=== PATIENT | male | born 1945 | race Caucasian/White ===

== ENCOUNTER 2017-05-19 11:51 | Inpatient (IN) | payer OTHER, MEDICARE ==
[2017-05-19 12:14] LABS: Hematocrit 43.5 % (42.0-52.0); Hemoglobin 14.5 gm/dL (13.5-18.0); Mean Cell Volume 84.8 fl (78-100); Mean Corpuscular Hemoglobin 28.3 pg (27-31); Mean Corpuscular Hgb Conc 33.3 g/dl (32-36); Mean Platelet Volume 10.7 fl (6.0-9.5); Neutrophil # 4.6 K/mm3 (1.3-6.0); Neutrophil % 69.4 % (42-75.0); Platelet Count 137 K/mm3 (150-450); Red Blood Count 5.13 M/mm3 (4.7-6.0); Red Cell Distribution Width 15.3 % (11.5-14.0); White Blood Count 6.7 K/mm3 (4.0-10.5)
[2017-05-19 12:24] LABS: Prothrombin Time (Patient) 24.6 Seconds (9.0-11.0)
[2017-05-19 12:25] LABS: INR 2.44 INR (0.90-1.10)
[2017-05-19 12:34] LABS: Albumin * 3.2 gm/dl (3.4-5.0); Anion Gap 12.9 mmol/L (6.8-13.8); BUN/Creatinine Ratio 17.9 (9.0-21.6); Bilirubin, Total 0.4 mg/dL (0.0-1.1); Ca. Corrected For Albumin 9.7 mg/dL (8.4-10.2); Calcium * 9.4 mg/dL (7.9-10.9); Carbon Dioxide 28.7 mmol/L (24-32.6); Potassium 3.6 mmol/L (3.4-4.6)
[2017-05-19 12:35] LABS: Troponin I 0.083 ng/ml (0.00-0.10)
[2017-05-19] MEDS ORDERED: ALBUTEROL SULFATE/IPRATROPIUM 3 ML NEBU IH ONE ×2 (12:42→12:45)
[2017-05-19] MEDS ORDERED: NORMAL SALINE 1,000 ML IV PRN (13:24)
[2017-05-19] MEDS ORDERED: ACETAMINOPHEN 500 MG TABLET PO ONE (13:28)
--- NOTE | 2017-05-19 14:21 | ERNOTE ---
Trauma/Assault HPI - Narrative Date of Service: 05/19/17 - General Stated Complaint: FALL FACE INJURY Time Seen by Provider: 05/19/17 11:53 Source: patient, family Exam Limitations: no limitations - Immun/Allergies/Home Medications Immunizations: IMMUNIZATION HX History of Influenza Vaccine Yes Allergies/Adverse Reactions: Allergies No Known Allergies Allergy (Unverified 05/19/17 12:03) Home Medications: HOME MEDICATIONS Allopurinol [Zyloprim] 300 mg PO BID 05/19/17 [Last Taken Unknown] Amitriptyline HCl [Elavil] 50 mg PO HS 05/19/17 [Last Taken Unknown] Betamethasone Valerate [Betamethasone Valerate Ointment] 1 appl TP BID 05/19/17 [Last Taken Unknown] Cetirizine HCl [Zyrtec] 10 mg PO DAILY 05/19/17 [Last Taken Unknown] Cholecalciferol (Vitamin D3) [Vitamin D] 2,000 unit PO DAILY 05/19/17 [Last Taken Unknown] Colchicine 0.6 mg PO DAILY 05/19/17 [Last Taken Unknown] Fluticasone Propionate [Flovent Diskus] 50 mcg IH DAILY 05/19/17 [Last Taken Unknown] Furosemide [Lasix] 80 mg PO BID 05/19/17 [Last Taken Unknown] Insulin Aspart [Novolog] 5 units SC TIDWM 05/19/17 [Last Taken Unknown] Insulin Glargine,Hum.rec.anlog [Lantus] 40 unit SQ BID 05/19/17 [Last Taken Unknown] Lisinopril [Zestril] 10 mg PO BID 05/19/17 [Last Taken Unknown] Metoprolol Succinate 200 mg PO DAILY 05/19/17 [Last Taken Unknown] Multivitamin [Multivitamins] 1 each PO DAILY 05/19/17 [Last Taken Unknown] Potassium Chloride [Klor-Con M20] 20 meq PO BID 05/19/17 [Last Taken Unknown] SUMAtriptan SUCCINATE [Imitrex] 100 mg PO Q2H PRN 05/19/17 [Last Taken Unknown] Tamsulosin HCl [Flomax] 0.4 mg PO DAILY@1800 05/19/17 [Last Taken Unknown] Terbinafine HCl [Terbinafine] 30 gm TP BID 05/19/17 [Last Taken Unknown] Warfarin Sodium [Coumadin] 5 mg PO DAILY 05/19/17 [Last Taken Unknown] guaiFENesin [Guaifenesin] 400 mg PO TID 05/19/17 [Last Taken Unknown] metFORMIN HCL [Metformin HCl] 1,000 mg PO BID 05/19/17 [Last Taken Unknown] tiZANidine HCL [Tizanidine HCl] 4 mg PO BID 05/19/17 [Last Taken Unknown] - History of Present Illness Narrative: Patient presents with a fall and head/facial injury. He Has been sick since Thursday with cough and increasing weakness. He was seen last night in the [facility] ED and diagnosed with Influenza B. This am he fell in the bathroom and hit his face and head. No CP or SOB. No LOC. No neck pain. Pain left head. No acute focal weakness. Denies extremity injury. Location Occurred: Reports: home Pain Location: Reports: head Method of Injury: Reports: direct blow, fall Severity: moderate Modifying Factors - (Improves): Reports: other - nothing Modifying Factors - (Worsens): Reports: other - nothing Loss of Consciousness: Reports: no loss of consciousness Associated Symptoms - Trauma: Reports: headache. Denies: seizures, slurred speech Review of Systems - Review of Systems Constitutional: Present: fever EYE: Present: see HPI ENT: Absent: throat swelling Respiratory: Present: shortness of breath, cough Cardiology: Absent: chest pain Gastrointestinal/Abdominal: Absent: abdominal pain Genitourinary: Absent: dysuria Musculoskeletal: Absent: joint swelling Skin: Absent: rash Neurological: Present: See HPI All Other Systems: All systems neg except as marked - Patient's Past Medical History Patient History - Medical: Diabetes Type 2 Insulin Dependent, Migraines Patient History - Cardiac/Respiratory: Deep Vein Thrombosis, Hypertension, Hyperlipidemia Patient History - Cancer: No Hx of Cancer Patient History - Surgical Procedures: Total Hip Replacement Patient History - Other: None - Social History Living Situations: home Alcohol Use: none Drug Use: none - Immunizations History of Influenza Vaccine: Yes Physical Exam - Physical Exam General Appearance: Present: alert, other - frequent cough, tachypnea. Generalized weakness Head Exam: Present: other - bruising left forehead/temporal area.. Absent: Martini's Sign Eye Exam: Normal inspection: bilateral, PERRL: bilateral, EOMI: bilateral - Difficult exam but no clear restrictions in EOM., Other: left - Subconjuntival hemorrhage left, no hyphema Ears, Nose, Throat: Present: other - left facial tendenress. Absent: normal pharynx, pharyngeal swelling Neck: Present: normal inspection, other - after CT, no localizing point tendenress, no tendenress to palpation whatsoever. No sugestion of fracture clinically ot ligamentous injury. CT reviewed, no clinical evidence of fracture Respiratory: Present: other - harsh cough, faint wheeze, tachypnea. Cardiovascular/Chest: Present: regular rate, rhythm, normal peripheral pulses Gastrointestinal/Abdominal: Present: normal bowel sounds, nontender, soft Back Exam: Present: no vertebral tenderness Extremity Exam: Present: non-tender Neurological Exam: Present: alert, no motor/sensory deficits, other - generalized weakness, no acute unilteral focal motor or sensory deifcits Skin Exam: Present: normal color, warm/dry ED Progress - Results and Orders Patient's Lab Results:: I have reviewed the patient's lab results. - Vital Signs Patient's Vital Signs:: I have reviewed the patient's vital signs. Vital Signs: Vital Signs 05/19/17 05/19/17 05/19/17 11:52 12:03 12:33 Temperature 37.6 C H 37.6 C H Pulse Rate 92 91 91 Respiratory 16 16 24 H Rate Blood Pressure 188/108 188/108 173/108 O2 Sat by Pulse 100 100 97 Oximetry 05/19/17 05/19/17 12:45 13:03 Temperature Pulse Rate 98 100 Respiratory 28 H 26 H Rate Blood Pressure 165/76 O2 Sat by Pulse 95 89 L Oximetry - EKG EKG: NSR EKG read: Interp. by me EKG Comments: NSR rate 97. PVC. Non-specific changes, no clear STEMI - X-Ray X-Ray #1 X-Ray: chest Interpretation: Interp. by me X-ray Comments: I reviewed radioilogy report - CT/Ultrasound CT/Ultrasound Narrative: I reviewed official radiology reports for head CT, C-spine CT and facial bone CT. - Progress/Reassessment Chief Complaint: Fall Progress Note-Subjective: 05/19/17 14:18 Influenza B pos last night, generalized weakness with fall and injury. Hypoxia here, sats 87% RA. Needs obs. 05/19/17 15:48 [facility], needs admit here. D/W Dr Camacho, will admit. Departure Clinical Impression: Fall, Influenza B, Head injury, Musculoskeletal pain, Hypoxia - Departure Disposition: Still a patient Condition: Stable Critical Care Time - Critical Care Critical Time Spent:: No
--- NOTE | 2017-05-19 17:07 | HP ---
Chief Complaint - Chief Complaint Date of Service: 05/19/17 Time of Service: 16:48 Chief Complaint: fall History of Present Illness: Willy Rodriguez, is a 71-year-old white male, who usually goes to the [facility], with previous medical history of hypertension, diabetes mellitus type 2, hyperlipidemia, history of DVT and pulmonary embolism in the past, who was admitted on 05/19/2017 because of a fall. Two days [employer], the patient started having coughing associated with URI symptoms. One day [employer], he was seen in the emergency room of [facility] and was diagnosed with influenza B . He was sent home on no medicine because she was told that it was too late to start the Tamiflu. Today while walking to his bathroom he fell down and hit his left side of his head and then he developed a big subconjunctival hemorrhage of his left eye. He denies any vision loss. He was then brought to our emergency room where he had the CT scan of his neck, face and head which showed no fractures. He was then found also to be hypoxemic and needing oxygen to bring up his saturation to the 90s. He was then admitted for further treatment. - Patient's Past Medical History Patient History - Medical: Diabetes Type 2 Insulin Dependent, Migraines Patient History - Cardiac/Respiratory: Deep Vein Thrombosis, Hypertension, Hyperlipidemia Patient History - Cancer: No Hx of Cancer Patient History - Surgical Procedures: Total Hip Replacement Patient History - Other: None - Family History Mother Family History - Medical: , Depression Family History - Cardiac/Respiratory: History Unknown Family History - Cancer: History Unknown Father Family History - Medical: , History Unknown Family History - Cardiac/Respiratory: History Unknown Family History - Cancer: No pertinent family hx Sister Family History - Medical: History Unknown Family History - Cardiac/Respiratory: History Unknown Family History - Cancer: History Unknown - Social History Living Situations: home Alcohol Use: none Drug Use: none - Immunizations History of Influenza Vaccine: Yes Review Of Systems (GEN) - Review of Systems Generalized/Overall Review: Present: Weakness EENTM: Absent: Blurred Vision Respiratory: Present: Cough, Shortness of Breath, Wheezing Cardiac: Present: Edema. Absent: Chest Pain, Palpitations Abdominal: Absent: Nausea, Vomiting Genitourinary: Absent: Urgency, Frequency Musculoskeletal: Present: Joint Pain Neurological: Absent: Weakness Immunizations: IMMUNIZATION HX History of Influenza Vaccine Yes Allergies/Adverse Reactions: Allergies Allergy/AdvReac Type Severity Reaction Status Date / Time No Known Allergies Allergy Verified 05/19/17 17:36 Home Medications: HOME MEDICATIONS Allopurinol [Zyloprim] 300 mg PO BID 05/19/17 [Last Taken Unknown] Amitriptyline HCl [Elavil] 50 mg PO HS 05/19/17 [Last Taken Unknown] Atorvastatin Calcium [Lipitor] 40 mg PO HS 05/19/17 [Last Taken Unknown] Betamethasone Valerate [Betamethasone Valerate Ointment] 1 appl TP BID 05/19/17 [Last Taken Unknown] Cetirizine HCl [Zyrtec] 10 mg PO DAILY 05/19/17 [Last Taken Unknown] Cholecalciferol (Vitamin D3) [Vitamin D] 2,000 unit PO DAILY 05/19/17 [Last Taken Unknown] Colchicine 0.6 mg PO DAILY 05/19/17 [Last Taken Unknown] Ferrous Sulfate [Iron] 324 mg PO DAILY 05/19/17 [Last Taken Unknown] Fluticasone Propionate [Flovent Diskus] 50 mcg IH DAILY 05/19/17 [Last Taken Unknown] Furosemide [Lasix] 80 mg PO BID 05/19/17 [Last Taken Unknown] Insulin Aspart [Novolog] 21 units SC 1700 05/19/17 [Last Taken Unknown] Insulin Aspart [Novolog] 23 units SC 1200 05/19/17 [Last Taken Unknown] Insulin Aspart [Novolog] 30 units SC 0700 05/19/17 [Last Taken Unknown] Insulin Glargine,Hum.rec.anlog [Lantus] 50 unit SQ BID 05/19/17 [Last Taken Unknown] Lisinopril [Zestril] 10 mg PO BID 05/19/17 [Last Taken Unknown] Metoprolol Succinate 200 mg PO DAILY 05/19/17 [Last Taken Unknown] Multivitamin [Multivitamins] 1 each PO DAILY 05/19/17 [Last Taken Unknown] Potassium Chloride [Klor-Con M20] 20 meq PO BID 05/19/17 [Last Taken Unknown] SUMAtriptan SUCCINATE [Imitrex] 100 mg PO Q2H PRN 05/19/17 [Last Taken Unknown] Tamsulosin HCl [Flomax] 0.4 mg PO DAILY@1800 05/19/17 [Last Taken Unknown] Terbinafine HCl [Terbinafine] 30 gm TP BID 05/19/17 [Last Taken Unknown] Warfarin Sodium [Coumadin] 5 mg PO DAILY 05/19/17 [Last Taken Unknown] guaiFENesin [Guaifenesin] 400 mg PO TID 05/19/17 [Last Taken Unknown] metFORMIN HCL [Metformin HCl] 1,000 mg PO BID 05/19/17 [Last Taken Unknown] tiZANidine HCL [Tizanidine HCl] 4 mg PO BID 05/19/17 [Last Taken Unknown] Exam - Exam Vital Signs: Vital Signs - Last Taken Temp 36.5 C 05/19/17 16:00 Pulse 89 05/19/17 16:00 Resp 21 H 05/19/17 16:00 BP 129/74 05/19/17 16:00 Pulse Ox 94 05/19/17 16:00 Constitutional: Present: Alert, Oriented x3, Cooperative, Mild distress, Morbidly obese ENT Exam: Present: hearing grossly normal Eye Exam: left eye: other - subconjunctival hemorhage Neck: Present: non-tender Respiratory: Present: decreased breath sounds, crackles, wheezing Cardiovascular/Chest: Present: regular rate, rhythm, no JVD, no murmur Abdomen: Present: Normal bowel sounds, soft, nontender, nondistended Extremity: Present: no calf tenderness, lower extremity edema Diagnostic Studies: Laboratory Results WBC 6.7 K/mm3 (4.0-10.5) 05/19/17 12:10 RBC 5.13 M/mm3 (4.7-6.0) 05/19/17 12:10 Hgb 14.5 gm/dL (13.5-18.0) 05/19/17 12:10 Hct 43.5 % (42.0-52.0) 05/19/17 12:10 MCV 84.8 fl (78-100) 05/19/17 12:10 MCH 28.3 pg (27-31) 05/19/17 12:10 MCHC 33.3 g/dl (32-36) 05/19/17 12:10 RDW 15.3 % (11.5-14.0) H 05/19/17 12:10 Plt Count 137 K/mm3 (150-450) L 05/19/17 12:10 MPV 10.7 fl (6.0-9.5) H 05/19/17 12:10 Immature Gran % (Auto) 1.00 % (0.001-0.429) H 05/19/17 12:10 Immature Gran # (Auto) 0.07 K/mm3 (0.000-0.0310) H 05/19/17 12:10 Neutrophils % 69.4 % (42-75.0) 05/19/17 12:10 Lymphocytes % 9.6 % (20-51) L 05/19/17 12:10 Monocytes % 18.4 % (0.0-9) H 05/19/17 12:10 Eosinophils % 1.2 % (0.0-3.0) 05/19/17 12:10 Basophils % 0.4 % (0.0-1.0) 05/19/17 12:10 Nucleated RBC % 0.0 k/mm3 (0-1) 05/19/17 12:10 Neutrophils # 4.6 K/mm3 (1.3-6.0) 05/19/17 12:10 Lymphocytes # 0.6 k/mm3 (1.5-3.5) L 05/19/17 12:10 Monocytes # 1.2 k/mm3 (0.0-1.0) H 05/19/17 12:10 Eosinophils # 0.1 k/mm3 (0.0-0.7) 05/19/17 12:10 Absolute Basophils 0.0 k/mm3 (0.0-0.1) 05/19/17 12:10 PT 24.6 Seconds (9.0-11.0) H 05/19/17 12:10 INR (Anticoag Therapy) 2.44 INR (0.90-1.10) H 05/19/17 12:10 pCO2 42.5 mmHg (35.0-48.0) 05/19/17 13:15 pO2 57.3 mmHg (83.0-108.0) L 05/19/17 13:15 HCO3 28.4 mmol/L (21.0-28.0) H 05/19/17 13:15 Total CO2 29.7 mmol/L (19.0-24.0) H 05/19/17 13:15 Base Excess 3.8 mmol/L (-2.0-3.0) H 05/19/17 13:15 ABG pH 7.44 (7.35-7.45) 05/19/17 13:15 ABG O2 Sat (Measured) 90.8 % (94.0-98.0) L 05/19/17 13:15 Sodium 135 mmol/L (132-142) 05/19/17 12:10 Plasma Sodium 137 mmol/L (130-142) 05/19/17 12:10 Potassium 3.6 mmol/L (3.4-4.6) 05/19/17 12:10 Chloride 97 mmol/L (97-106) 05/19/17 12:10 Carbon Dioxide 28.7 mmol/L (24-32.6) 05/19/17 12:10 Anion Gap 12.9 mmol/L (6.8-13.8) 05/19/17 12:10 BUN 24 mg/dL (6-23) H 05/19/17 12:10 Creatinine 1.34 mg/dL (0.4-1.4) 05/19/17 12:10 Est GFR (Non-Af Amer) 56 mL/min (60-130) L 05/19/17 12:10 BUN/Creatinine Ratio 17.9 (9.0-21.6) 05/19/17 12:10 Random Glucose 215 mg/dL (70-110) H 05/19/17 12:10 Lactic Acid, Venous 2.3 mmol/L (0.4-1.9) H* 05/19/17 15:13 Calcium 9.4 mg/dL (7.9-10.9) 05/19/17 12:10 Calcium Adj for Albumin 9.7 mg/dL (8.4-10.2) 05/19/17 12:10 Total Bilirubin 0.4 mg/dL (0.0-1.1) 05/19/17 12:10 AST 40 U/L (0-48) 05/19/17 12:10 ALT 52 U/L (19-67) 05/19/17 12:10 Alkaline Phosphatase 109 U/L (50-170) 05/19/17 12:10 Troponin I 0.083 ng/ml (0.00-0.10) 05/19/17 12:10 B-Natriuretic Peptide 450 pg/mL (5-350) H 05/19/17 12:10 Total Protein 7.0 gm/dL (6.2-8.2) 05/19/17 12:10 Albumin 3.2 gm/dl (3.4-5.0) L 05/19/17 12:10 Assessment/Plan - Assessment/Plan (1) Fall Assessment: will get PT/OT eval Problem: Acute (2) Head injury Assessment: CTSS showed no hemorrhage or acute intracranial process. Problem: Acute (3) Hypoxia Assessment: acute respiratory failure , hypoxemic type- likely due to acute bronchospasm from acute bronchitis. will start duoneb/Iv solumedrol/azithromycin Problem: Acute (4) Influenza B Assessment: will start Tamiflu as he has risk factors for complications from influenza and he is requiring hospitalization. Problem: Acute (5) Musculoskeletal pain Problem: Acute (6) Diabetes mellitus type 2 in obese Problem: Chronic (7) Hyperlipidemia Problem: Chronic Qualifiers: Hyperlipidemia type: mixed hyperlipidemia Qualified Code(s): E78.2 - Mixed hyperlipidemia (8) Hypertension Problem: Chronic Qualifiers: Hypertension type: essential hypertension Qualified Code(s): I10 - Essential (primary) hypertension (9) DVT (deep venous thrombosis) Problem: Chronic (10) History of DVT (deep vein thrombosis) Problem: Chronic (11) History of pulmonary embolism Problem: Chronic (12) Subconjunctival hemorrhage of left eye Assessment: will decrease his coumadin and reduse his INR to the low therapeutic range 1.8- 2 for now Problem: Acute
[2017-05-19] MEDS ORDERED: AZITHROMYCIN 500 MG in DEXTROSE 5 % IN WATER 250 ML IV ONE ×2 (17:37)
[2017-05-19] MEDS: ALBUTEROL SULFATE/IPRATROPIUM 3 ML NEBU IH SCH ×2 (18:09→22:08)
[2017-05-19] MEDS: BUDESONIDE 0.5 MG/2 ML VIAL.NEB IH SCH (18:13)
[2017-05-19] MEDS ORDERED: FUROSEMIDE 80 MG TABLET PO SCH (19:00)
[2017-05-19] MEDS ORDERED: INSULIN GLARGINE,HUM.REC.ANLOG 100 UNITS/ML VIAL SC SCH (21:00)
[2017-05-19] MEDS: METHYLPREDNISOLONE SOD SUCC 60 MG in WATER FOR INJ.,BACTERIOSTATIC 0 ML IV SCH (22:45)
[2017-05-19] MEDS: OSELTAMIVIR PHOSPHATE 75 MG CAPSULE PO SCH ×2 (22:46→22:47)
[2017-05-19] MEDS: TAMSULOSIN HCL 0.4 MG CAP.SR.24H PO SCH (22:47)
[2017-05-19] MEDS: POTASSIUM CHLORIDE 20 MEQ TABLET.SA PO SCH (22:48)
[2017-05-19] MEDS: AMITRIPTYLINE HCL 50 MG TABLET PO SCH (22:50)
[2017-05-19] MEDS: ALLOPURINOL 300 MG TABLET PO SCH (22:51)
[2017-05-19] MEDS: LISINOPRIL 10 MG TABLET PO SCH (22:51)
[2017-05-19] MEDS: tiZANidine HCL 4 MG TABLET PO SCH (22:52)
[2017-05-19] MEDS: [UNRECOGNIZED DRUG - OTHER] TP SCH (22:54)
[2017-05-19] MEDS: BETAMETHASONE VALERATE 15 APPL TUBE TP SCH (22:55)
[2017-05-20] MEDS ORDERED: ALBUTEROL SULFATE 2.5 MG/0.5 ML VIAL.NEB IH PRN (00:20)
[2017-05-20] MEDS: ACETAMINOPHEN 325 MG TABLET PO PRN ×2 (01:01→12:01)
[2017-05-20] MEDS ORDERED: LEVALBUTEROL HCL 1.25 MG/3 ML AMPUL IH ONE (01:38)
[2017-05-20] MEDS: LEVALBUTEROL HCL 1.25 MG/3 ML AMPUL IH SCH ×6 (01:59→22:06)
[2017-05-20] MEDS: METHYLPREDNISOLONE SOD SUCC 60 MG in WATER FOR INJ.,BACTERIOSTATIC 0 ML IV SCH ×5 (03:06→23:59)
[2017-05-20 05:13] LABS: Hematocrit 41.1 % (42.0-52.0); Hemoglobin 13.6 gm/dL (13.5-18.0); Mean Cell Volume 86.5 fl (78-100); Mean Corpuscular Hemoglobin 28.6 pg (27-31); Mean Corpuscular Hgb Conc 33.1 g/dl (32-36); Mean Platelet Volume 10.5 fl (6.0-9.5); Neutrophil # 6.3 K/mm3 (1.3-6.0); Platelet Count 128 K/mm3 (150-450); Red Blood Count 4.75 M/mm3 (4.7-6.0); Red Cell Distribution Width 15.4 % (11.5-14.0); White Blood Count 7.3 K/mm3 (4.0-10.5)
[2017-05-20 05:23] LABS: Anion Gap 13.7 mmol/L (6.8-13.8); BUN/Creatinine Ratio 18.4 (9.0-21.6); Calcium * 8.4 mg/dL (7.9-10.9); Carbon Dioxide 28.4 mmol/L (24-32.6); Estimated Creat Clear 35.5; Potassium 4.1 mmol/L (3.4-4.6)
[2017-05-20] MEDS: BUDESONIDE 0.5 MG/2 ML VIAL.NEB IH SCH ×2 (06:13→18:05)
--- NOTE | 2017-05-20 06:35 | PN ---
Subjective - Date and Time Seen Date: 05/20/17 Time: 06:23 Subjective Narrative: Pt examined this am and is resting calmly without any distress on the recliner. Appears to have slow/delayed mentation. He had an eventful night. He was febrile with a temp of 38.5. He also went into Afib with rvr in the 120s-150s for < 15 minutes but he as able to convert to NSR without pharmacological intervention.He had desaturations to 88-89% ra during the same time frame and required oxygen supplementation. Nursing reported also difficulty with arousal to verbal and physical stimuli but ABGs obtained were normal. Cr this am up 2.06 from previous 1.34 Objective - Vitals Vitals: Last Vital Signs Temp 36.8 C 05/20/17 03:15 Pulse 79 05/20/17 06:10 Resp 24 H 05/20/17 06:10 BP 143/65 05/20/17 03:15 Pulse Ox 95 05/20/17 06:10 - Abnormal Lab Findings Abnormal Lab Findings: Abnormal Lab Results 05/20/17 05/20/17 05/20/17 Range/Units 00:22 05:09 05:09 Hct 41.1 L (42.0-52.0) % RDW 15.4 H (11.5-14.0) % Plt Count 128 L (150-450) K/mm3 MPV 10.5 H (6.0-9.5) fl Immature Gran % (Auto) 1.00 H (0.001-0.429) % Immature Gran # (Auto) 0.07 H (0.000-0.0310) K/mm3 Neutrophils % 86.0 H (42-75.0) % Lymphocytes % 8.2 L (20-51) % Neutrophils # 6.3 H (1.3-6.0) K/mm3 Lymphocytes # 0.60 L (1.5-3.5) k/mm3 pO2 77.8 L (83.0-108.0) mmHg Total CO2 26.8 H (19.0-24.0) mmol/L Chloride 95 L (97-106) mmol/L BUN 38 H D (6-23) mg/dL Creatinine 2.06 H D (0.4-1.4) mg/dL Est GFR (Non-Af Amer) 34 L D (60-130) mL/min Random Glucose 353 H D (70-110) mg/dL - Exam Constitutional: Present: No distress ENT Exam: Present: dry mucous membranes, other - Hemorhage on LT conjuctivae. Neck: Present: non-tender, full range of motion, supple Breasts: Present: Exam deferred Respiratory: Present: wheezing, inspiration Cardiovascular/Chest: Present: normal peripheral pulses, regular rate, rhythm, no chest tenderness, no edema Abdomen: Present: Normal bowel sounds, soft, nontender, obese /Rectal: Present: Exam deferred Extremity: Present: normal range of motion, non-tender, normal inspection, no pedal edema Skin Exam: Present: other - scattered bruising on BLE. Neurologic: Present: disoriented x 3 Appearance: Present: impaired insight Eye contact: Present: cooperative Thoughts: Present: no apparent hallucination Assessment/Plan - Problems/Diagnosis (1) Acute kidney injury Problem: Acute Narrative: likely pre-renal due to diuretics. Will hold off lasix. hydrate with IVF. Hold metformin and adjust tamiflu according to creatinine clearence. BMP in am Laboratory Tests 05/19/17 05/20/17 12:10 05:09 Creatinine 1.34 2.06 H D (2) Acute bronchitis Problem: Acute Narrative: Continue Solumedrol/nebs/ and Antibiotics. (3) Conjunctival hemorrhage of left eye Problem: Acute Narrative: Pt is chronically on anticoagulation for PE/DVT. He had a fall and suffered vessel rupture from trauma. eye examination is normal other than presence of subconjuctival hemorrhage which may take up to 2 weeks to resolve. (4) Influenza B Problem: Acute Narrative: Continue with Tamiflu. (5) DVT (deep venous thrombosis) Problem: Chronic (6) Diabetes mellitus type 2 in obese Problem: Chronic (7) History of DVT (deep vein thrombosis) Problem: Chronic (8) Hyperlipidemia Problem: Chronic Qualifiers: Hyperlipidemia type: mixed hyperlipidemia Qualified Code(s): E78.2 - Mixed hyperlipidemia (9) Hypertension Problem: Chronic Qualifiers: Hypertension type: essential hypertension Qualified Code(s): I10 - Essential (primary) hypertension
[2017-05-20] MEDS ORDERED: INSULIN LISPRO 100 UNITS/ML VIAL SC SCH ×3 (07:00→17:00)
[2017-05-20] MEDS: NORMAL SALINE 1,000 ML IV PRN ×3 (07:44→21:18)
[2017-05-20 07:53] LABS: INR 1.51 INR (0.90-1.10); Prothrombin Time (Patient) 15.2 Seconds (9.0-11.0)
[2017-05-20] MEDS: INSULIN LISPRO 100 UNITS/ML VIAL SC SCH (08:16)
[2017-05-20] MEDS: INSULIN GLARGINE,HUM.REC.ANLOG 100 UNITS/ML VIAL SC SCH ×2 (08:16→21:20)
[2017-05-20] MEDS: BETAMETHASONE VALERATE 15 APPL TUBE TP SCH ×2 (08:20→21:07)
[2017-05-20] MEDS: [UNRECOGNIZED DRUG - OTHER] TP SCH ×2 (08:21→21:07)
[2017-05-20] MEDS: SUMAtriptan SUCCINATE 50 MG TABLET PO PRN (08:21)
[2017-05-20] MEDS: COLCHICINE 0.6 MG TABLET PO SCH (08:22)
[2017-05-20] MEDS: MULTIVITAMINS 1 CAP CAPSULE PO SCH (08:22)
[2017-05-20] MEDS: CHOLECALCIFEROL 1,000 UNIT CAPSULE PO SCH (08:22)
[2017-05-20] MEDS: LISINOPRIL 10 MG TABLET PO SCH ×2 (08:23→21:14)
[2017-05-20] MEDS: METOPROLOL SUCCINATE 100 MG TABLET.SA PO SCH (08:23)
[2017-05-20] MEDS: tiZANidine HCL 4 MG TABLET PO SCH ×2 (08:23→21:10)
[2017-05-20] MEDS: ALLOPURINOL 300 MG TABLET PO SCH ×2 (08:24→21:14)
--- NOTE | 2017-05-20 08:24 | PN ---
Progess Note - Interim Date: 05/20/17 Time: 08:19 Narrative: 05/20/17 08:19 I saw and examined this patient on 05/20/2017. I agree with the narrative and plan of NIKA Weir with some exceptions. Will continue with is breathing treatments, IV solumedrol and Azithromycin for his Acute bronchitis. Will adjsut his tamiflu per his Cr clearance. His Cr is up to 2.06. Will restart IVF and decrease his home lasix from 80 mg PO BID to QD. Will stop his metformin and continue with his insulin dose. PT is evaluating the patient. He is feeling better this morning. He denies any vision loss, double vison, AGUILAR, N/V. He has had dry heaving even before his fall.
[2017-05-20] MEDS: POTASSIUM CHLORIDE 20 MEQ TABLET.SA PO SCH (08:27)
[2017-05-20] MEDS: FERROUS SULFATE 325 MG TABLET PO SCH (08:38)
[2017-05-20] MEDS: AZITHROMYCIN 250 MG TABLET PO SCH (08:39)
[2017-05-20] MEDS: OSELTAMIVIR PHOSPHATE 30 MG CAPSULE PO SCH ×2 (08:39→21:10)
[2017-05-20] MEDS ORDERED: FUROSEMIDE 80 MG TABLET PO SCH (09:00)
[2017-05-20 11:47] LABS: Urine Bilirubin Negative (NEGATIVE); Urine Ketone Negative (NEGATIVE); Urine Nitrite Negative (NEGATIVE); Urine Protein Negative (NEGATIVE); Urine Specific Gravity 1.015 SP.GR. (1.005-1.030); Urine Urobilinogen Normal (NORMAL); Urine pH 5.5 pH (5.0-7.0)
[2017-05-20] MEDS: NYSTATIN 15 APPL BTL TP SCH ×2 (11:53→21:08)
[2017-05-20 12:20] LABS: Urine Appearance Clear; Urine Blood 10 /ul (NEGATIVE); Urine Color Yellow
[2017-05-20 12:21] LABS: Urine Bacteria TRACE; Urine RBC None Seen /hpf (0-5); Urine WBC 0-5 /hpf (0-5)
[2017-05-20] MEDS ORDERED: INSULIN LISPRO 100 UNITS/ML VIAL SC ONE (14:00)
[2017-05-20] MEDS ORDERED: WARFARIN SODIUM 2 MG TABLET PO SCH (17:00)
[2017-05-20] MEDS: TAMSULOSIN HCL 0.4 MG CAP.SR.24H PO SCH (17:04)
[2017-05-20] MEDS: ATORVASTATIN CALCIUM 40 MG TABLET PO SCH (21:08)
[2017-05-20] MEDS: AMITRIPTYLINE HCL 50 MG TABLET PO SCH (21:10)
[2017-05-21] MEDS: LEVALBUTEROL HCL 1.25 MG/3 ML AMPUL IH SCH ×7 (02:10→22:23)
[2017-05-21] MEDS: NORMAL SALINE 1,000 ML IV PRN ×3 (03:30→16:05)
[2017-05-21] MEDS: METHYLPREDNISOLONE SOD SUCC 60 MG in WATER FOR INJ.,BACTERIOSTATIC 0 ML IV SCH ×3 (05:16→21:01)
--- NOTE | 2017-05-21 05:18 | PN ---
Subjective - Date and Time Seen Date: 05/21/17 Subjective Narrative: Pt seen this am. He is alert and calm. Denies feeling SOB. States that the nebulizer treatments are helping. Has not needed any o2. Vision field on the LT eye tested and he was able to correctly identify the number of fingers. No other acute events overnight. Objective - Vitals Vitals: Last Vital Signs Temp 36.4 C L 05/21/17 02:12 Pulse 65 05/21/17 02:20 Resp 17 05/21/17 02:20 BP 128/61 05/21/17 02:12 Pulse Ox 92 05/21/17 02:12 - Abnormal Lab Findings Abnormal Lab Findings: Abnormal Lab Results 05/20/17 05/20/17 05/20/17 Range/Units 05:09 05:09 07:20 Hct 41.1 L (42.0-52.0) % RDW 15.4 H (11.5-14.0) % Plt Count 128 L (150-450) K/mm3 MPV 10.5 H (6.0-9.5) fl Immature Gran % (Auto) 1.00 H (0.001-0.429) % Immature Gran # (Auto) 0.07 H (0.000-0.0310) K/mm3 Neutrophils % 86.0 H (42-75.0) % Lymphocytes % 8.2 L (20-51) % Neutrophils # 6.3 H (1.3-6.0) K/mm3 Lymphocytes # 0.60 L (1.5-3.5) k/mm3 PT (9.0-11.0) Seconds INR (Anticoag Therapy) (0.90-1.10) INR Chloride 95 L (97-106) mmol/L BUN 38 H D (6-23) mg/dL Creatinine 2.06 H D (0.4-1.4) mg/dL Est GFR (Non-Af Amer) 34 L D (60-130) mL/min Random Glucose 353 H D (70-110) mg/dL Lactic Acid, Venous (0.4-1.9) mmol/L B-Natriuretic Peptide 458 H (5-350) pg/mL Urine Glucose (UA) (NEGATIVE) mg/dL Urine Blood (NEGATIVE) /ul 05/20/17 05/20/17 05/20/17 Range/Units 07:22 07:40 10:35 Hct (42.0-52.0) % RDW (11.5-14.0) % Plt Count (150-450) K/mm3 MPV (6.0-9.5) fl Immature Gran % (Auto) (0.001-0.429) % Immature Gran # (Auto) (0.000-0.0310) K/mm3 Neutrophils % (42-75.0) % Lymphocytes % (20-51) % Neutrophils # (1.3-6.0) K/mm3 Lymphocytes # (1.5-3.5) k/mm3 PT 15.2 H (9.0-11.0) Seconds INR (Anticoag Therapy) 1.51 H (0.90-1.10) INR Chloride (97-106) mmol/L BUN (6-23) mg/dL Creatinine (0.4-1.4) mg/dL Est GFR (Non-Af Amer) (60-130) mL/min Random Glucose (70-110) mg/dL Lactic Acid, Venous 2.4 H* 4.3 H* (0.4-1.9) mmol/L B-Natriuretic Peptide (5-350) pg/mL Urine Glucose (UA) (NEGATIVE) mg/dL Urine Blood (NEGATIVE) /ul 05/20/17 Range/Units 11:39 Hct (42.0-52.0) % RDW (11.5-14.0) % Plt Count (150-450) K/mm3 MPV (6.0-9.5) fl Immature Gran % (Auto) (0.001-0.429) % Immature Gran # (Auto) (0.000-0.0310) K/mm3 Neutrophils % (42-75.0) % Lymphocytes % (20-51) % Neutrophils # (1.3-6.0) K/mm3 Lymphocytes # (1.5-3.5) k/mm3 PT (9.0-11.0) Seconds INR (Anticoag Therapy) (0.90-1.10) INR Chloride (97-106) mmol/L BUN (6-23) mg/dL Creatinine (0.4-1.4) mg/dL Est GFR (Non-Af Amer) (60-130) mL/min Random Glucose (70-110) mg/dL Lactic Acid, Venous (0.4-1.9) mmol/L B-Natriuretic Peptide (5-350) pg/mL Urine Glucose (UA) >=1000 H (NEGATIVE) mg/dL Urine Blood 10 H (NEGATIVE) /ul - Exam Constitutional: Present: Alert, Oriented x3, Cooperative, No distress ENT Exam: Present: normal ENT inspection, hearing grossly normal Neck: Present: non-tender, full range of motion, supple Breasts: Present: Exam deferred Respiratory: Present: No rales, No wheezing Cardiovascular/Chest: Present: normal peripheral pulses, regular rate, rhythm, no chest tenderness Abdomen: Present: Normal bowel sounds, soft, nontender, obese /Rectal: Present: Exam deferred Extremity: Present: normal range of motion, non-tender, lower extremity edema Skin Exam: Present: other - Scattered bruising. Lymphatic: Present: no adenopathy Neurologic: Present: alert, normal mood/affect Appearance: Present: appropriate appearance, appropriate insight Eye contact: Present: cooperative, good eye contact, normal speech Thoughts: Present: no apparent hallucination Assessment/Plan - Problems/Diagnosis (1) Acute kidney injury Problem: Acute Narrative: likely pre-renal due to diuretics. Will hold off lasix. hydrate with IVF. Hold metformin and adjust tamiflu according to creatinine clearence. BMP in am Laboratory Tests 05/19/17 05/20/17 05/21/17 12:10 05:09 05:31 Creatinine 1.34 2.06 H D 1.72 H 3/08- kidney function improved with IVF. (2) Acute bronchitis Problem: Acute Narrative: Continue Solumedrol/nebs/ and Antibiotics. (3) Conjunctival hemorrhage of left eye Problem: Acute Narrative: Pt is chronically on anticoagulation for PE/DVT and will plan to continue due to the risk of reoccurrence even though he suffered vessel rupture in the eye from trauma/fall. The eye examination is normal- no loss of vision, other than presence of subconjuctival hemorrhage which may take up to 2 weeks to resolve. (4) Influenza B Problem: Acute Narrative: On Tamiflu (5) DVT (deep venous thrombosis) Problem: Chronic (6) Diabetes mellitus type 2 in obese Problem: Chronic (7) History of DVT (deep vein thrombosis) Problem: Chronic (8) Hyperlipidemia Problem: Chronic Qualifiers: Hyperlipidemia type: mixed hyperlipidemia Qualified Code(s): E78.2 - Mixed hyperlipidemia (9) Hypertension Problem: Chronic Qualifiers: Hypertension type: essential hypertension Qualified Code(s): I10 - Essential (primary) hypertension
[2017-05-21 05:41] LABS: Hematocrit 42.4 % (42.0-52.0); Hemoglobin 13.9 gm/dL (13.5-18.0); Mean Cell Volume 86.5 fl (78-100); Mean Corpuscular Hemoglobin 28.4 pg (27-31); Mean Corpuscular Hgb Conc 32.8 g/dl (32-36); Mean Platelet Volume 11.2 fl (6.0-9.5); Neutrophil # 9.1 K/mm3 (1.3-6.0); Neutrophil % 84.4 % (42-75.0); Platelet Count 148 K/mm3 (150-450); Red Cell Distribution Width 15.3 % (11.5-14.0); White Blood Count 10.8 K/mm3 (4.0-10.5)
[2017-05-21 05:44] LABS: Prothrombin Time (Patient) 12.7 Seconds (9.0-11.0)
[2017-05-21 05:46] LABS: BUN/Creatinine Ratio 27.3 (9.0-21.6); Calcium * 8.5 mg/dL (7.9-10.9); Carbon Dioxide 26.9 mmol/L (24-32.6); Estimated Creat Clear 42.6; Potassium 3.9 mmol/L (3.4-4.6)
[2017-05-21] MEDS: BUDESONIDE 0.5 MG/2 ML VIAL.NEB IH SCH ×3 (05:53→18:30)
[2017-05-21 05:59] LABS: INR 1.27 INR (0.90-1.10)
[2017-05-21] MEDS: INSULIN LISPRO 100 UNITS/ML VIAL SC SCH ×3 (07:22→17:02)
[2017-05-21] MEDS: NYSTATIN 15 APPL BTL TP SCH ×2 (08:47→21:01)
[2017-05-21] MEDS: BETAMETHASONE VALERATE 15 APPL TUBE TP SCH ×2 (08:48→20:59)
[2017-05-21] MEDS: [UNRECOGNIZED DRUG - OTHER] TP SCH ×2 (08:48→21:00)
[2017-05-21] MEDS: CHOLECALCIFEROL 1,000 UNIT CAPSULE PO SCH (08:52)
[2017-05-21] MEDS: METOPROLOL SUCCINATE 100 MG TABLET.SA PO SCH (08:52)
[2017-05-21] MEDS: tiZANidine HCL 4 MG TABLET PO SCH ×2 (08:53→21:02)
[2017-05-21] MEDS: AZITHROMYCIN 250 MG TABLET PO SCH (08:53)
[2017-05-21] MEDS: OSELTAMIVIR PHOSPHATE 30 MG CAPSULE PO SCH ×2 (08:54→21:01)
[2017-05-21] MEDS: LISINOPRIL 10 MG TABLET PO SCH ×2 (08:54→21:02)
[2017-05-21] MEDS: FERROUS SULFATE 325 MG TABLET PO SCH (08:54)
[2017-05-21] MEDS: MULTIVITAMINS 1 CAP CAPSULE PO SCH (08:54)
[2017-05-21] MEDS: ALLOPURINOL 300 MG TABLET PO SCH ×2 (08:55→22:44)
[2017-05-21] MEDS: INSULIN GLARGINE,HUM.REC.ANLOG 100 UNITS/ML VIAL SC SCH ×2 (08:56→21:12)
[2017-05-21] MEDS: COLCHICINE 0.6 MG TABLET PO SCH (09:03)
[2017-05-21] MEDS: ACETAMINOPHEN 325 MG TABLET PO PRN (09:03)
[2017-05-21] MEDS: guaiFENesin 100 MG/5 ML BTL PO PRN ×2 (16:34→21:07)
[2017-05-21] MEDS ORDERED: WARFARIN SODIUM 4 MG TABLET PO SCH (17:00)
[2017-05-21] MEDS: FLUTICASONE PROPIONATE 120 SPRAY INHALER NS SCH (17:00)
[2017-05-21] MEDS: TAMSULOSIN HCL 0.4 MG CAP.SR.24H PO SCH (17:03)
[2017-05-21] MEDS: GENTAMICIN SULFATE 3.5 APPL TUBE LEFTEYE SCH (20:59)
[2017-05-21] MEDS: AMITRIPTYLINE HCL 50 MG TABLET PO SCH (21:00)
[2017-05-21] MEDS: ATORVASTATIN CALCIUM 40 MG TABLET PO SCH (21:00)
[2017-05-21] MEDS ORDERED: ALLOPURINOL 100 MG TABLET ONE (22:39)
[2017-05-22] MEDS: NORMAL SALINE 1,000 ML IV PRN ×4 (00:11→22:41)
[2017-05-22] MEDS: LEVALBUTEROL HCL 1.25 MG/3 ML AMPUL IH SCH ×6 (02:13→22:27)
[2017-05-22] MEDS: METHYLPREDNISOLONE SOD SUCC 60 MG in WATER FOR INJ.,BACTERIOSTATIC 0 ML IV SCH ×3 (04:59→21:53)
[2017-05-22] MEDS: guaiFENesin 100 MG/5 ML BTL PO PRN (04:59)
--- NOTE | 2017-05-22 05:12 | PN ---
Subjective - Date and Time Seen Date: 05/22/17 Time: 05:11 Subjective Narrative: Pt examined this am. He is in no distress. States that he is still coughing alot. Denies SOB. His LT eye feels scratch but says the eye ointment helps. No other acute events overnight. Objective - Vitals Vitals: Last Vital Signs Temp 36.4 C L 05/22/17 02:26 Pulse 68 05/22/17 02:26 Resp 22 H 05/22/17 02:26 BP 127/65 05/22/17 02:26 Pulse Ox 93 05/22/17 02:26 - Abnormal Lab Findings Abnormal Lab Findings: Abnormal Lab Results 05/21/17 05/21/17 05/21/17 Range/Units 05:31 05:31 05:31 WBC 10.8 H D (4.0-10.5) K/mm3 RDW 15.3 H (11.5-14.0) % Plt Count 148 L (150-450) K/mm3 MPV 11.2 H (6.0-9.5) fl Immature Gran % (Auto) 0.60 H (0.001-0.429) % Immature Gran # (Auto) 0.06 H (0.000-0.0310) K/mm3 Neutrophils % 84.4 H (42-75.0) % Lymphocytes % 8.4 L (20-51) % Neutrophils # 9.1 H (1.3-6.0) K/mm3 Lymphocytes # 0.91 L (1.5-3.5) k/mm3 PT 12.7 H (9.0-11.0) Seconds INR (Anticoag Therapy) 1.27 H (0.90-1.10) INR BUN 47 H (6-23) mg/dL Creatinine 1.72 H (0.4-1.4) mg/dL Est GFR (Non-Af Amer) 42 L D (60-130) mL/min BUN/Creatinine Ratio 27.3 H (9.0-21.6) Random Glucose 427 H (70-110) mg/dL Lactic Acid, Venous (0.4-1.9) mmol/L 05/21/17 Range/Units 05:31 WBC (4.0-10.5) K/mm3 RDW (11.5-14.0) % Plt Count (150-450) K/mm3 MPV (6.0-9.5) fl Immature Gran % (Auto) (0.001-0.429) % Immature Gran # (Auto) (0.000-0.0310) K/mm3 Neutrophils % (42-75.0) % Lymphocytes % (20-51) % Neutrophils # (1.3-6.0) K/mm3 Lymphocytes # (1.5-3.5) k/mm3 PT (9.0-11.0) Seconds INR (Anticoag Therapy) (0.90-1.10) INR BUN (6-23) mg/dL Creatinine (0.4-1.4) mg/dL Est GFR (Non-Af Amer) (60-130) mL/min BUN/Creatinine Ratio (9.0-21.6) Random Glucose (70-110) mg/dL Lactic Acid, Venous 3.5 H* (0.4-1.9) mmol/L - Exam Constitutional: Present: Alert, Oriented x3, Cooperative, No distress ENT Exam: Present: normal ENT inspection, other - LT eye- subconjuctival hemorrhage Neck: Present: non-tender, full range of motion Breasts: Present: Exam deferred Respiratory: Present: No rales, No wheezing Cardiovascular/Chest: Present: normal peripheral pulses, regular rate, rhythm, no chest tenderness Abdomen: Present: Normal bowel sounds, soft, nontender, obese /Rectal: Present: Exam deferred Extremity: Present: lower extremity edema - + 1 BLE pitting edema Skin Exam: Present: other - scattered bruising Lymphatic: Present: no adenopathy Neurologic: Present: alert, normal mood/affect, oriented x 3 Appearance: Present: appropriate appearance, appropriate insight Eye contact: Present: cooperative, good eye contact, normal speech Thoughts: Present: no apparent hallucination Assessment/Plan - Problems/Diagnosis (1) Acute kidney injury Problem: Acute Narrative: likely pre-renal due to diuretics. Will hold off lasix. hydrate with IVF. Hold metformin and adjust tamiflu according to creatinine clearance. BMP in am (2) Acute bronchitis Problem: Acute Narrative: Continue Solumedrol/nebs/ and Antibiotics, prn antitussives. - is improving. no hypoxia, dyspnea or O2 needs. (3) Conjunctival hemorrhage of left eye Problem: Acute Narrative: Pt is chronically on anticoagulation for PE/DVT and will plan to continue due to the risk of reoccurrence even though he suffered vessel rupture in the eye from trauma/fall. The eye examination is normal- no loss of vision, other than presence of subconjuctival hemorrhage which may take up to 2 weeks to resolve. 05/21- noted to have tearing on LT eye- started on eye lubricant with Ax to prevent infection. No need for eye patch and the upper eyelid can close fully during sleep. (4) Influenza B Problem: Acute Narrative: Continue Tamiflu. (5) DVT (deep venous thrombosis) Problem: Chronic (6) Lactic acidosis Problem: Acute Narrative: Likely due to Metformin. (7) Diabetes mellitus type 2 in obese Problem: Chronic Narrative: Continue mealtime insulin and long acting insulin. SSI added due to Solumedrol. (8) History of DVT (deep vein thrombosis) Problem: Chronic Narrative: Will have pharmacy adjust/dose coumadin. (9) Hyperlipidemia Problem: Chronic Qualifiers: Hyperlipidemia type: mixed hyperlipidemia Qualified Code(s): E78.2 - Mixed hyperlipidemia (10) Hypertension Problem: Chronic Qualifiers: Hypertension type: essential hypertension Qualified Code(s): I10 - Essential (primary) hypertension
[2017-05-22 05:54] LABS: Anion Gap 11.8 mmol/L (6.8-13.8); BUN/Creatinine Ratio 28.2 (9.0-21.6); Calcium * 8.5 mg/dL (7.9-10.9); Estimated Creat Clear 55.9; Potassium 3.8 mmol/L (3.4-4.6)
[2017-05-22 05:55] LABS: Hematocrit 40.5 % (42.0-52.0); Hemoglobin 13.7 gm/dL (13.5-18.0); Mean Cell Volume 86.2 fl (78-100); Mean Corpuscular Hemoglobin 29.1 pg (27-31); Mean Corpuscular Hgb Conc 33.8 g/dl (32-36); Mean Platelet Volume 11.5 fl (6.0-9.5); Neutrophil # 12.1 K/mm3 (1.3-6.0); Platelet Count 151 K/mm3 (150-450); Red Cell Distribution Width 15.2 % (11.5-14.0); White Blood Count 13.8 K/mm3 (4.0-10.5)
[2017-05-22 06:00] LABS: INR 1.2 INR (0.90-1.10)
[2017-05-22] MEDS: BUDESONIDE 0.5 MG/2 ML VIAL.NEB IH SCH ×2 (06:22→18:14)
[2017-05-22] MEDS: INSULIN LISPRO 100 UNITS/ML VIAL SC SCH ×3 (06:36→16:57)
[2017-05-22] MEDS: guaiFENesin 100 MG/5 ML BTL PO SCH ×5 (06:37→21:58)
[2017-05-22] MEDS: SUMAtriptan SUCCINATE 50 MG TABLET PO PRN ×2 (06:41→10:28)
[2017-05-22] MEDS: LACTOBACILLUS ACIDOPHILUS 100 CAP BTL PO SCH ×4 (09:02→16:33)
[2017-05-22] MEDS: COLCHICINE 0.6 MG TABLET PO SCH (09:03)
[2017-05-22] MEDS: LOSARTAN POTASSIUM 50 MG TABLET PO SCH ×2 (09:03→21:49)
[2017-05-22] MEDS: BETAMETHASONE VALERATE 15 APPL TUBE TP SCH ×3 (09:03→22:18)
[2017-05-22] MEDS: FERROUS SULFATE 325 MG TABLET PO SCH (09:04)
[2017-05-22] MEDS: [UNRECOGNIZED DRUG - OTHER] TP SCH ×2 (09:04→21:51)
[2017-05-22] MEDS: GENTAMICIN SULFATE 3.5 APPL TUBE LEFTEYE SCH ×3 (09:04→16:33)
[2017-05-22] MEDS: FLUTICASONE PROPIONATE 120 SPRAY INHALER NS SCH (09:04)
[2017-05-22] MEDS: MULTIVITAMINS 1 CAP CAPSULE PO SCH (09:04)
[2017-05-22] MEDS: INSULIN GLARGINE,HUM.REC.ANLOG 100 UNITS/ML VIAL SC SCH ×2 (09:05→22:13)
[2017-05-22] MEDS: tiZANidine HCL 4 MG TABLET PO SCH ×2 (09:06→21:54)
[2017-05-22] MEDS: OSELTAMIVIR PHOSPHATE 30 MG CAPSULE PO SCH ×2 (09:06→21:54)
[2017-05-22] MEDS: CHOLECALCIFEROL 1,000 UNIT CAPSULE PO SCH (09:06)
[2017-05-22] MEDS: METOPROLOL SUCCINATE 100 MG TABLET.SA PO SCH (09:06)
[2017-05-22] MEDS: AZITHROMYCIN 250 MG TABLET PO SCH (09:06)
[2017-05-22] MEDS: NYSTATIN 15 APPL BTL TP SCH ×2 (09:11→21:52)
[2017-05-22] MEDS: ALLOPURINOL 300 MG TABLET PO SCH ×3 (09:27→21:57)
[2017-05-22] MEDS ORDERED: cefTRIAXone SODIUM 1,000 MG in DEXTROSE 5 % IN WATER 50 ML IV ONE ×2 (13:45)
[2017-05-22] MEDS: TAMSULOSIN HCL 0.4 MG CAP.SR.24H PO SCH (16:59)
[2017-05-22] MEDS ORDERED: WARFARIN SODIUM 6 MG TABLET PO SCH (17:00)
[2017-05-22] MEDS ORDERED: WARFARIN SODIUM 10 MG TABLET PO SCH (17:00)
[2017-05-22] MEDS: AMITRIPTYLINE HCL 50 MG TABLET PO SCH (21:51)
[2017-05-22] MEDS: ATORVASTATIN CALCIUM 40 MG TABLET PO SCH (21:52)
[2017-05-23] MEDS: LEVALBUTEROL HCL 1.25 MG/3 ML AMPUL IH SCH ×3 (02:38→10:14)
[2017-05-23] MEDS: guaiFENesin 100 MG/5 ML BTL PO SCH ×3 (02:40→10:39)
[2017-05-23 05:30] LABS: Hematocrit 39.4 % (42.0-52.0); Mean Cell Volume 86.4 fl (78-100); Mean Corpuscular Hemoglobin 28.5 pg (27-31); Mean Platelet Volume 11.3 fl (6.0-9.5); Neutrophil # 8.7 K/mm3 (1.3-6.0); Platelet Count 134 K/mm3 (150-450); Red Blood Count 4.56 M/mm3 (4.7-6.0); Red Cell Distribution Width 15.5 % (11.5-14.0); White Blood Count 10.3 K/mm3 (4.0-10.5)
[2017-05-23 05:41] LABS: Prothrombin Time (Patient) 14.4 Seconds (9.0-11.0)
[2017-05-23 05:43] LABS: Anion Gap 11.8 mmol/L (6.8-13.8); Calcium * 8.5 mg/dL (7.9-10.9); Carbon Dioxide 27.6 mmol/L (24-32.6); Estimated Creat Clear 62.6; Potassium 4.4 mmol/L (3.4-4.6)
[2017-05-23 05:53] LABS: INR 1.43 INR (0.90-1.10)
[2017-05-23] MEDS: METHYLPREDNISOLONE SOD SUCC 60 MG in WATER FOR INJ.,BACTERIOSTATIC 0 ML IV SCH ×2 (05:54→12:05)
[2017-05-23] MEDS: BUDESONIDE 0.5 MG/2 ML VIAL.NEB IH SCH (05:59)
[2017-05-23 06:02] LABS: BUN/Creatinine Ratio 23.1 (9.0-21.6)
[2017-05-23] MEDS: INSULIN LISPRO 100 UNITS/ML VIAL SC SCH ×2 (06:59→11:48)
[2017-05-23] MEDS ORDERED: PANTOPRAZOLE SODIUM 40 MG TABLET.EC PO SCH (07:00)
[2017-05-23] MEDS: LACTOBACILLUS ACIDOPHILUS 100 CAP BTL PO SCH ×2 (08:13→12:05)
[2017-05-23] MEDS: NYSTATIN 15 APPL BTL TP SCH (08:13)
[2017-05-23] MEDS: MULTIVITAMINS 1 CAP CAPSULE PO SCH (08:14)
[2017-05-23] MEDS: POTASSIUM CHLORIDE 20 MEQ TABLET.SA PO SCH ×2 (08:14→08:41)
[2017-05-23] MEDS: CHOLECALCIFEROL 1,000 UNIT CAPSULE PO SCH (08:14)
[2017-05-23] MEDS: FUROSEMIDE 80 MG TABLET PO SCH ×2 (08:14)
[2017-05-23] MEDS: GENTAMICIN SULFATE 3.5 APPL TUBE LEFTEYE SCH ×2 (08:15→12:05)
[2017-05-23] MEDS: OSELTAMIVIR PHOSPHATE 30 MG CAPSULE PO SCH (08:15)
[2017-05-23] MEDS: ALLOPURINOL 300 MG TABLET PO SCH (08:15)
[2017-05-23] MEDS: AZITHROMYCIN 250 MG TABLET PO SCH (08:16)
[2017-05-23] MEDS: BETAMETHASONE VALERATE 15 APPL TUBE TP SCH (08:16)
[2017-05-23] MEDS: COLCHICINE 0.6 MG TABLET PO SCH (08:16)
[2017-05-23] MEDS: tiZANidine HCL 4 MG TABLET PO SCH (08:16)
[2017-05-23] MEDS: FERROUS SULFATE 325 MG TABLET PO SCH (08:17)
[2017-05-23] MEDS: LOSARTAN POTASSIUM 50 MG TABLET PO SCH (08:17)
[2017-05-23] MEDS: METOPROLOL SUCCINATE 100 MG TABLET.SA PO SCH (08:17)
[2017-05-23] MEDS: INSULIN GLARGINE,HUM.REC.ANLOG 100 UNITS/ML VIAL SC SCH (08:18)
[2017-05-23] MEDS: FLUTICASONE PROPIONATE 120 SPRAY INHALER NS SCH (08:18)
[2017-05-23] MEDS: [UNRECOGNIZED DRUG - OTHER] TP SCH (08:18)
--- NOTE | 2017-05-23 09:10 | DS ---
(1) Fall Problem: Acute (2) Head injury Problem: Acute (3) Hypoxia Problem: Resolved (4) Influenza B Problem: Acute (5) Musculoskeletal pain Problem: Acute (6) Diabetes mellitus type 2 in obese Problem: Chronic (7) Hyperlipidemia Problem: Chronic Qualifiers: Hyperlipidemia type: mixed hyperlipidemia Qualified Code(s): E78.2 - Mixed hyperlipidemia (8) Hypertension Problem: Chronic Qualifiers: Hypertension type: essential hypertension Qualified Code(s): I10 - Essential (primary) hypertension (9) DVT (deep venous thrombosis) Problem: Chronic (10) History of DVT (deep vein thrombosis) Problem: Chronic (11) History of pulmonary embolism Problem: Chronic (12) Subconjunctival hemorrhage of left eye Problem: Acute Description of Stay: Willy Rodriguez, is a 71-year-old white male, who usually goes to the [place], with previous medical history of hypertension, diabetes mellitus type 2, hyperlipidemia, history of DVT and pulmonary embolism in the past, who was admitted on 05/19/2017 because of a fall. 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 One day CYTOPATHOLOGY TECHNOLOGIST, he was seen in the emergency room of [facility] and was diagnosed with influenza B . He was sent home on no medicine because she was told that it was too late to start the Tamiflu. Today while walking to his bathroom he fell down and hit his left side of his head and then he developed a big subconjunctival hemorrhage of his left eye. He denied any vision loss. He was then brought to our emergency room where he had the CT scan of his neck, face and head which showed no fractures. He was then found also to be hypoxemic and needing oxygen to bring up his saturation to the 90s. He was then admitted for further treatment. He was started on antibiotics, IV solumedrol and breathing treatments for acute bronchitis. His Cr bumped up and his lasix was stopped and started on IVF. Because of his elevated lactic acid , his metformin was stopped. His blood sugars went up in the 400's and his insulin was increased. His lactic acid was most likely due to his uncontrolled BS. He continuied to have non productive cough and his lisinopril was changed to Losartan. He was also started on Protonix for possible GERD. His follow up CXR showed bilateral pocities cannot entirely rule pneumonia. It also showed increased vascular markings cannot rule out edema. His Lasix were restarted and IVF discontinued. This morning he says that he has some sinus problems that drips down especially when laying down. Will treat him also for acute sinusitis and he is stable to be discharged as his Cr is back to normal and he is no longer needing supplemental O2 . He has been saturating in the 94% at [facility]. We had gone down on his Coumadin because of his big subconjunctival hemorrhage. We are going up on it again. He will go back to his insulin dose. [facility] but he may follow up with me for one time posthospitalization visit. Procedures Performed: none Discharge Location: Home Disposition: Home self-care Condition: Stable Discharge Activity: Activity as tolerated Discharge Diet: Consistent carbs Problem Oriented Discharge Instructions to Patient/Family: Influenza, Adult, [id number] Additional Patient Instructions (free text): -Please make TCM appointment unless correction discharge. Thank you! Brittney @ [phone]. Follow up with his PCP in 1 week. May follow up with me x 1. Prescriptions (Any new or edited meds): Acetaminophen [Tylenol] 650 mg PO Q6H PRN #30 tablet PRN Reason: Mild Pain (Pain Scale 1-3) Albuterol Sulfate [Albuterol Sulfate 2.5 MG/0.5ML] 2.5 mg IH Q2H PRN #1 vial.neb PRN Reason: Shortness Of Breath/Wheezing Amox Tr/Potassium Clavulanate [Augmentin 875-125 Tablet] 875 mg PO Q12H #14 tab Fluticasone Propionate [Flonase] 1 spray NS DAILY #1 inhaler Gentamicin Sulfate [Gentacidin 0.3% Ophth Ointment] 1 appl LEFTEYE BID #1 tube guaiFENesin [Robitussin] 200 mg PO Q4H #1 btl Losartan Potassium [Cozaar] 25 mg PO BID #60 tablet Oseltamivir Phosphate [Tamiflu] 30 mg PO BID #4 capsule Pantoprazole Sodium [Protonix] 40 mg PO DAILY@0700 #7 tablet. Complete Home Medications List: Complete Home Medication List: Allopurinol [Zyloprim] 300 mg PO BID 05/19/17 Amitriptyline HCl [Elavil] 50 mg PO HS 05/19/17 Atorvastatin Calcium [Lipitor] 40 mg PO HS 05/19/17 Betamethasone Valerate [Betamethasone Valerate Ointment] 1 appl TP BID 05/19/17 Cetirizine HCl [Zyrtec] 10 mg PO DAILY 05/19/17 Cholecalciferol (Vitamin D3) [Vitamin D3] 2,000 unit PO DAILY 05/19/17 Colchicine 0.6 mg PO DAILY 05/19/17 Ferrous Sulfate [Iron] 324 mg PO DAILY 05/19/17 Fluticasone Propionate [Flovent Diskus] 50 mcg IH DAILY 05/19/17 Furosemide [Lasix] 80 mg PO BID 05/19/17 Insulin Aspart [Novolog] 21 units SC 1700 05/19/17 Insulin Aspart [Novolog] 23 units SC 1200 05/19/17 Insulin Glargine,Hum.rec.anlog [Lantus] 50 unit SQ BID 05/19/17 Metoprolol Succinate 200 mg PO DAILY 05/19/17 Multivitamin [Multivitamins] 1 each PO DAILY 05/19/17 Potassium Chloride [Klor-Con M20] 20 meq PO BID 05/19/17 SUMAtriptan SUCCINATE [Imitrex] 100 mg PO Q2H PRN 05/19/17 Tamsulosin HCl [Flomax] 0.4 mg PO DAILY@1800 05/19/17 Terbinafine HCl [Terbinafine] 30 gm TP BID 05/19/17 Warfarin Sodium [Coumadin] 7.5 mg PO SUTUTH 05/19/17 guaiFENesin [Guaifenesin] 400 mg PO TID 05/19/17 tiZANidine HCL [Tizanidine HCl] 4 mg PO BID 05/19/17 Warfarin Sodium [Coumadin] 10 mg PO [id number] 05/22/17 Acetaminophen [Tylenol] 650 mg PO Q6H PRN #30 tablet 05/23/17 Albuterol Sulfate [Albuterol Sulfate 2.5 MG/0.5ML] 2.5 mg IH Q2H PRN #1 vial.neb 05/23/17 Amox Tr/Potassium Clavulanate [Augmentin 875-125 Tablet] 875 mg PO Q12H #14 tab 05/23/17 Fluticasone Propionate [Flonase] 1 spray NS DAILY #1 inhaler 03/10/18 Gentamicin Sulfate [Gentacidin 0.3% Ophth Ointment] 1 appl LEFTEYE BID #1 tube 05/23/17 Losartan Potassium [Cozaar] 25 mg PO BID #60 tablet 05/23/17 Oseltamivir Phosphate [Tamiflu] 30 mg PO BID #4 capsule 05/23/17 Pantoprazole Sodium [Protonix] 40 mg PO DAILY@0700 #7 tablet. 05/23/17 guaiFENesin [Robitussin] 200 mg PO Q4H #1 btl 05/23/17
[2017-05-23 10:32] VITALS: BP 147/78
[2017-05-23] MEDS ORDERED: WARFARIN SODIUM 7.5 MG TABLET PO SCH (17:00)
== END 2017-05-23 14:40 | disposition home or self-care (01) | DRG 153 ==
LOC: ER 11:51 → MS 15:41
PROVIDERS: ADMIT Internal Medicine; ATTEND Internal Medicine
PROC: 4A033R1 Measurement of Arterial Saturation, Peripheral, Percutaneous Approach (ICD-10-PCS; principal; 2017-05-19)
DX: J11.1 Influenza due to unidentified influenza virus with other respiratory manifestations (principal); N17.9 Acute kidney failure, unspecified; E87.2 Acidosis; J20.9 Acute bronchitis, unspecified; H11.32 Conjunctival hemorrhage, left eye; J01.90 Acute sinusitis, unspecified; W01.0XXA Fall on same level from slipping, tripping and stumbling without subsequent striking against object, initial encounter; Z91.81 History of falling; Y92.009 Unspecified place in unspecified non-institutional (private) residence as the place of occurrence of the external cause; E11.9 Type 2 diabetes mellitus without complications; M79.1 Myalgia; E78.2 Mixed hyperlipidemia; I10 Essential (primary) hypertension; Z86.711 Personal history of pulmonary embolism; Z86.718 Personal history of other venous thrombosis and embolism; Z79.01 Long term (current) use of anticoagulants; Z79.4 Long term (current) use of insulin